=== PATIENT | female | born 1945 | race Caucasian/White ===

== ENCOUNTER 2017-11-02 11:01 | Emergency (ER) | payer MEDICARE, OTHER ==
[2017-11-02] MEDS ORDERED: RABIES IMMUNE GLOBULIN/PF 150 UNIT/ML, 10ML VIAL IM ONE (11:21)
[2017-11-02] MEDS ORDERED: RABIES VACCINE 2.5 IU VIAL IM ONE (11:21)
--- NOTE | 2017-11-02 11:31 | Emergency Department Record ---
History of Present Illness - General Chief Complaint: Animal Bite Stated Complaint: POSSIBLE BAT BITE Time Seen by Provider: 11/02/17 11:10 Source: Patient Mode of Arrival: Ambulatory Limitations: No limitations - History of Present Illness Initial Comments: The patient is here due to a possible bat exposure. She woke up last night with a bat near her head in her room. She also did find a PW to her abdomen that was fresh with blood on her night gown. Due to the possible exposure she is here for Rabies Prophylaxis. The patient believes her Td is UTD. Complaint: Animal bite Onset/Timin -: Hour(s) Location - General: Abdomen Animal: Bat Mechanism: Bite, Other - Related Data Home Medications Medication Instructions Recorded Confirmed Last Taken Aspirin [Aspir-Low] 81 mg PO DAILY 11/02/17 11/02/17 Unknown Calcium Carbonate [Calcium] 600 mg PO DAILY 11/02/17 11/02/17 Unknown Celecoxib [Celebrex] 200 mg PO BID 11/02/17 11/02/17 11/02/17 Cholecalciferol (Vitamin D3) 1,000 unit PO DAILY 11/02/17 11/02/17 Unknown [Vitamin D3] Hydrochlorothiazide [Hctz] 25 mg PO DAILY 11/02/17 11/02/17 11/02/17 Potassium Chloride 20 meq PO DAILY 11/02/17 11/02/17 11/02/17 Simvastatin [Zocor] 20 mg PO QHS 11/02/17 11/02/17 Unknown Telmisartan [Micardis] 80 mg PO DAILY 11/02/17 11/02/17 11/02/17 Allergies Allergy/AdvReac Type Severity Reaction Status Date / Time azithromycin [From Zithromax] Allergy HIVES Verified 11/02/17 11:11 meperidine HCl [From Demerol] AdvReac NAUSEA AND Verified 11/02/17 11:11 VOMITING morphine AdvReac NAUSEA AND Verified 11/02/17 11:11 VOMITING Travel Screening - Travel/Exposure Within Last 30 Days Have you traveled within the last 30 days?: No - Travel/Exposure Within Last Year Have you traveled outside the [place] in the last year?: No - Additonal Travel Details Have you been exposed to anyone with a communicable illness?: No - Travel Symptoms Symptom Screening: None Review of Systems Constitutional: Denies: Chills, Fever Past Medical History - SOCIAL HISTORY Smoking Status: Never smoker Alcohol Use: None Drug Use: None - RESPIRATORY Hx Respiratory Disorders: No - CARDIOVASCULAR Hx Cardio Disorders: Yes Hx Hypertension: Yes Comment:: high cholesterol - NEURO Hx Neuro Disorders: No - GI Hx GI Disorders: No - Hx Genitourinary Disorders: Yes Hx Bladder Problem: Yes (incont.) - ENDOCRINE Hx Endocrine Disorders: No - MUSCULOSKELETAL Hx Musculoskeletal Disorders: Yes Hx Arthritis: Yes Hx Fibromyalgia: Yes - PSYCH Hx Psych Problems: No - HEMATOLOGY/ONCOLOGY Hx Hematology/Oncology Disorders: No Family Medical History Any Significant Family History?: No Family Hx Comment (NOT TO BE USED IN PLACE OF ITEMS BELOW): strong family history of colon cancer, dad, grandma, aunt, and uncle Hx Anxiety: Brother/Sister Hx Cancer: Father, Brother/Sister, Grandparents *Cancer Comment: colon, ovarian Hx Dementia: Mother, Grandparents Hx Depression: Brother/Sister Hx Diabetes: Mother, Brother/Sister Hx Heart Disease: Father Hx HTN: Father, Mother, Brother/Sister Physical Exam - General General Appearance: Alert, Oriented x3, Cooperative, No acute distress - Head Head exam: Atraumatic, Normocephalic - Eye Eye exam: Normal appearance, PERRL - Neck Neck exam: Normal inspection, Full ROM. negative: Tenderness - Respiratory Respiratory exam: Normal lung sounds bilaterally. negative: Respiratory distress - Cardiovascular Cardiovascular Exam: Regular rate, Normal rhythm, Normal heart sounds - GI/Abdominal GI/Abdominal exam: Soft, Other (There is a very superficial < 1 cm wound to the R mid abdomen that is nontender and not bleeding.). negative: Tenderness Course Vital Signs 11/02/17 11:04 Temperature 98.1 F Pulse Rate 72 Respiratory 16 Rate Blood Pressure 137/79 Pulse Ox 96 - Reevaluation(s) Reevaluation #1: The patient is doing well after the multiple shots and is ready for home. She understands the need to return to the ER on day 3,7, and 14. 11/02/17 11:56 Disposition Disposition: Discharge Clinical Impression: Bat bite wound Disposition: Home, Self-Care Condition: (2) Stable Instructions: Animal Bite (ED) Additional Instructions: Please watch the area for infection and return to the ER in 3, 7 and 14 days from now for repeat vaccinations. Forms: Patient Portal Access Time of Disposition: 11:58 Quality - Quality Measures Quality Measures: N/A - Blood Pressure Screening View Details: Yes Does Patient Have Any of the Following: No Blood Pressure Classification: Pre-Hypertensive BP Reading Systolic Measurement: 121 Diastolic Measurement: 71 Screening for High Blood Pressure: < Pre-Hypertensive BP, F/U Documented > [ G8950] Pre-Hypertensive Follow-up Interventions: Referral to alternative/primary care provider.
== END 2017-11-02 12:30 | disposition home or self-care (01) ==
LOC: ER 11:01
DX: S30.871A Other superficial bite of abdominal wall, initial encounter (principal); W55.81XA Bitten by other mammals, initial encounter; Y92.003 Bedroom of unspecified non-institutional (private) residence as the place of occurrence of the external cause
CPT/HCPCS: 90375; 90675; 96372; 99283

== ENCOUNTER 2017-11-05 08:58 | Emergency (ER) | payer MEDICARE, OTHER ==
[2017-11-05] MEDS ORDERED: Diph,Pert(Acell),Tet Vac 0.5 ML SYR IM ONE (09:04)
[2017-11-05] MEDS ORDERED: RABIES VACCINE 2.5 IU VIAL IM ONE (09:04)
--- NOTE | 2017-11-05 09:09 | Emergency Department Record ---
History of Present Illness - General Chief Complaint: Wound, check Stated Complaint: RABIES VACCINE Time Seen by Provider: 11/05/17 09:04 Source: Patient Mode of arrival: Ambulatory Limitations: No limitations - History of Present Illness Initial Comments: The patient is here for her 2nd rabies vaccine due to a possible bat bite 3 days ago. She denies any problems. Complaint: Wound re-check Onset/Timin -: Days(s) Initial Visit For: Animal bite Returns Today for: Rabies shot, Wound recheck Symptoms Since Prior Visit: No new symptoms Associated Symptoms: None - Related Data Allergies Allergy/AdvReac Type Severity Reaction Status Date / Time azithromycin [From Zithromax] Allergy HIVES Verified 11/02/17 11:11 meperidine HCl [From Demerol] AdvReac NAUSEA AND Verified 11/02/17 11:11 VOMITING morphine AdvReac NAUSEA AND Verified 11/02/17 11:11 VOMITING Travel Screening - Travel/Exposure Within Last 30 Days Have you traveled within the last 30 days?: No - Travel/Exposure Within Last Year Have you traveled outside the [place] in the last year?: No - Additonal Travel Details Have you been exposed to anyone with a communicable illness?: No - Travel Symptoms Symptom Screening: None Review of Systems Constitutional: Denies: Chills, Fever Past Medical History - SOCIAL HISTORY Smoking Status: Never smoker Alcohol Use: None Drug Use: None - RESPIRATORY Hx Respiratory Disorders: No - CARDIOVASCULAR Hx Cardio Disorders: Yes Hx Hypertension: Yes Comment:: high cholesterol - NEURO Hx Neuro Disorders: No - GI Hx GI Disorders: No - Hx Genitourinary Disorders: Yes Hx Bladder Problem: Yes (incont.) - ENDOCRINE Hx Endocrine Disorders: No - MUSCULOSKELETAL Hx Musculoskeletal Disorders: Yes Hx Arthritis: Yes Hx Fibromyalgia: Yes - PSYCH Hx Psych Problems: No - HEMATOLOGY/ONCOLOGY Hx Hematology/Oncology Disorders: No Family Medical History Any Significant Family History?: No Family Hx Comment (NOT TO BE USED IN PLACE OF ITEMS BELOW): strong family history of colon cancer, dad, grandma, aunt, and uncle Hx Anxiety: Brother/Sister Hx Cancer: Father, Brother/Sister, Grandparents *Cancer Comment: colon, ovarian Hx Dementia: Mother, Grandparents Hx Depression: Brother/Sister Hx Diabetes: Mother, Brother/Sister Hx Heart Disease: Father Hx HTN: Father, Mother, Brother/Sister Physical Exam - General General Appearance: Alert, Cooperative, No acute distress - Head Head exam: Atraumatic, Normocephalic - Eye Eye exam: Normal appearance, PERRL - GI/Abdominal GI/Abdominal exam: negative: Tenderness (The previous possible bat bite site is mildly bruised from the IG but appears to be healing well.) - Extremities Extremities exam: Normal inspection, Full ROM, Normal capillary refill. negative: Tenderness Course Vital Signs 11/05/17 09:00 Temperature 97.8 F Pulse Rate 69 Respiratory 18 Rate Blood Pressure 146/82 Pulse Ox 98 - Reevaluation(s) Reevaluation #1: 11/05/17 09:07 The patient is to return to the ER on days 7 and 14 to complete her series. Disposition Disposition: Discharge Clinical Impression: Bat bite wound Disposition: Home, Self-Care Condition: (2) Stable Instructions: Rabies Vaccine (ED) Additional Instructions: Please watch for signs of infection and return on days 7 and 14 for further vaccines. Time of Disposition: 09:08 Quality - Quality Measures Quality Measures: N/A - Blood Pressure Screening View Details: Yes Does Patient Have Any of the Following: No Blood Pressure Classification: Pre-Hypertensive BP Reading Systolic Measurement: 146 Diastolic Measurement: 82 Screening for High Blood Pressure: < Pre-Hypertensive BP, F/U Documented > [ G8950] Pre-Hypertensive Follow-up Interventions: Referral to alternative/primary care provider.
== END 2017-11-05 09:31 | disposition home or self-care (01) ==
LOC: ER 08:58
DX: Z29.14 Encounter for prophylactic rabies immune globulin (principal); I10 Essential (primary) hypertension
CPT/HCPCS: 90675; 90715; 96372; 99282

== ENCOUNTER 2017-11-09 09:17 | Emergency (ER) | payer MEDICARE, OTHER ==
[2017-11-09] MEDS ORDERED: RABIES VACCINE 2.5 IU VIAL IM ONE (09:23)
--- NOTE | 2017-11-09 09:27 | Emergency Department Record ---
History of Present Illness - General Stated Complaint: RABIES SHOTS Time Seen by Provider: 11/09/17 09:23 Source: Patient, Old records reviewed Limitations: No limitations - History of Present Illness Initial Comments: 72 yo female returns for rabies vaccine #3 of 4. She had a bat exposure. No complaints after the previous vaccination shots. Complaint: Wound re-check, Other (Rabies vaccination) Initial Visit For: Animal bite (bat) Returns Today for: Other Symptoms Since Prior Visit: No new symptoms Associated Symptoms: None - Related Data Allergies Allergy/AdvReac Type Severity Reaction Status Date / Time azithromycin [From Zithromax] Allergy HIVES Verified 11/02/17 11:11 meperidine HCl [From Demerol] AdvReac NAUSEA AND Verified 11/02/17 11:11 VOMITING morphine AdvReac NAUSEA AND Verified 11/02/17 11:11 VOMITING Review of Systems Constitutional: Denies: Chills, Fever ENT: Denies: Congestion, Throat pain Respiratory: Denies: Cough Endocrine: Denies: Fatigue Gastrointestinal: Denies: Diarrhea, Nausea, Vomiting Genitourinary: Denies: Dysuria Musculoskeletal: Denies: Arthralgia, Myalgia Skin: Denies: Change in color Hematological/Lymphatic: Denies: Easy bleeding, Easy bruising Past Medical History - SOCIAL HISTORY Smoking Status: Never smoker Drug Use: None - RESPIRATORY Hx Respiratory Disorders: No - CARDIOVASCULAR Hx Cardio Disorders: Yes Hx Hypertension: Yes Comment:: high cholesterol - NEURO Hx Neuro Disorders: No - GI Hx GI Disorders: No - Hx Genitourinary Disorders: Yes Hx Bladder Problem: Yes (incont.) - ENDOCRINE Hx Endocrine Disorders: No - MUSCULOSKELETAL Hx Musculoskeletal Disorders: Yes Hx Arthritis: Yes Hx Fibromyalgia: Yes - PSYCH Hx Psych Problems: No - HEMATOLOGY/ONCOLOGY Hx Hematology/Oncology Disorders: No Family Medical History Family Hx Comment (NOT TO BE USED IN PLACE OF ITEMS BELOW): strong family history of colon cancer, dad, grandma, aunt, and uncle Hx Anxiety: Brother/Sister Hx Cancer: Father, Brother/Sister, Grandparents *Cancer Comment: colon, ovarian Hx Dementia: Mother, Grandparents Hx Depression: Brother/Sister Hx Diabetes: Mother, Brother/Sister Hx Heart Disease: Father Hx HTN: Father, Mother, Brother/Sister Physical Exam - General General Appearance: Alert, Oriented x3, Cooperative, No acute distress Limitations: No limitations - Head Head exam: Normal inspection - Eye Eye exam: Normal appearance - ENT ENT exam: Normal exam Ear exam: Normal external inspection Nasal Exam: Normal inspection - Neurological Neurological exam: Alert, Normal gait, Oriented X3 - Psychiatric Psychiatric exam: Normal affect, Normal mood - Skin Skin exam: Dry, Intact, Normal color, Warm Course - Reevaluation(s) Reevaluation #1: 11/09/17 09:26 Shot 3 of 4 to be administered today Return as scheduled Disposition Disposition: Discharge Clinical Impression: Need for post exposure prophylaxis for rabies Disposition: Home, Self-Care Condition: (1) Good Instructions: Rabies Vaccine (ED) Additional Instructions: Return as scheduled for your 4th and final rabies shot Forms: Patient Portal Access Time of Disposition: 09:27 Quality - Quality Measures Quality Measures: N/A - Blood Pressure Screening Does Patient Have Any of the Following: Active Dx of HTN Blood Pressure Classification: Hypertensive Reading Systolic Measurement: 141 Diastolic Measurement: 72 Screening for High Blood Pressure: Patient Exclusion, Hx of HTN [G9744]
== END 2017-11-09 09:45 | disposition home or self-care (01) ==
LOC: ER 09:17
DX: Z29.14 Encounter for prophylactic rabies immune globulin (principal); I10 Essential (primary) hypertension
CPT/HCPCS: 90675; 96372; 99282

== ENCOUNTER 2017-11-16 08:24 | Emergency (ER) | payer MEDICARE, OTHER ==
[2017-11-16] MEDS ORDERED: RABIES VACCINE 2.5 IU VIAL IM ONE (08:33)
--- NOTE | 2017-11-16 08:39 | Emergency Department Record ---
History of Present Illness - General Chief Complaint: General Stated Complaint: LAST RABIES VACCINE Time Seen by Provider: 11/16/17 08:27 Source: Patient Mode of arrival: Ambulatory Limitations: No limitations - History of Present Illness Initial Comments: pt is here for last of rabies series. she was possibly bitten by a bat Complaint: Other -: Awoke with symptoms Initial Visit For: Animal bite Returns Today for: Rabies shot Symptoms Since Prior Visit: No new symptoms - Related Data Allergies Allergy/AdvReac Type Severity Reaction Status Date / Time azithromycin [From Zithromax] Allergy HIVES Verified 11/02/17 11:11 meperidine HCl [From Demerol] AdvReac NAUSEA AND Verified 11/02/17 11:11 VOMITING morphine AdvReac NAUSEA AND Verified 11/02/17 11:11 VOMITING Travel Screening - Travel/Exposure Within Last 30 Days Have you traveled within the last 30 days?: No Review of Systems Reviewed: No additional complaints except as noted below Constitutional: Reports: As per HPI. Denies: Chills, Fever, Malaise, Night sweats, Weakness, Weight change Eyes: Reports: As per HPI. Denies: Eye discharge, Eye pain, Photophobia, Vision change ENT: Reports: As per HPI. Denies: Congestion, Dental pain, Ear pain, Epistaxis , Hearing loss, Throat pain Respiratory: Reports: As per HPI. Denies: Cough, Dyspnea, Hemoptysis, Stridor, Wheezes Cardiovascular: Reports: As per HPI. Denies: Arrhythmia, Chest pain, Dyspnea on exertion, Edema, Murmurs, Orthopnea, Palpitations, Paroxysmal nocturnal dyspnea, Rheumatic Fever, Syncope Endocrine: Reports: As per HPI. Denies: Fatigue, Heat or cold intolerance, Polydipsia, Polyuria Gastrointestinal: Reports: As per HPI. Denies: Abdominal pain, Constipation, Diarrhea, Hematemesis, Hematochezia, Melena, Nausea, Vomiting Genitourinary: Reports: As per HPI. Denies: Abnormal menses, Discharge, Dyspareunia, Dysuria, Frequency, Hematuria, Incontinence, Retention, Urgency Musculoskeletal: Reports: As per HPI. Denies: Arthralgia, Back pain, Gout, Joint swelling, Myalgia, Neck pain Skin: Reports: As per HPI. Denies: Bruising, Change in color, Change in hair/ nails, Lesions, Pruritus, Rash Neurological: Reports: As per HPI. Denies: Abnormal gait, Confusion, Headache, Numbness, Paresthesias, Seizure, Tingling, Tremors, Vertigo, Weakness Psychiatric: Reports: As per HPI. Denies: Anxiety, Auditory hallucinations, Depression, Homicidal thoughts, Suicidal thoughts, Visual hallucinations Hematological/Lymphatic: Reports: As per HPI. Denies: Anemia, Blood Clots, Easy bleeding, Easy bruising, Swollen glands Past Medical History - SOCIAL HISTORY Smoking Status: Never smoker - RESPIRATORY Hx Respiratory Disorders: No - CARDIOVASCULAR Hx Cardio Disorders: Yes Hx Hypertension: Yes Comment:: high cholesterol - NEURO Hx Neuro Disorders: No - GI Hx GI Disorders: No - Hx Genitourinary Disorders: Yes Hx Bladder Problem: Yes (incont.) - ENDOCRINE Hx Endocrine Disorders: No - MUSCULOSKELETAL Hx Musculoskeletal Disorders: Yes Hx Arthritis: Yes Hx Fibromyalgia: Yes - PSYCH Hx Psych Problems: No - HEMATOLOGY/ONCOLOGY Hx Hematology/Oncology Disorders: No Family Medical History Any Significant Family History?: Yes Family Hx Comment (NOT TO BE USED IN PLACE OF ITEMS BELOW): strong family history of colon cancer, dad, grandma, aunt, and uncle Hx Anxiety: Brother/Sister Hx Cancer: Father, Brother/Sister, Grandparents *Cancer Comment: colon, ovarian Hx Dementia: Mother, Grandparents Hx Depression: Brother/Sister Hx Diabetes: Mother, Brother/Sister Hx Heart Disease: Father Hx HTN: Father, Mother, Brother/Sister Physical Exam - General General Appearance: Alert, Oriented x3, Cooperative, No acute distress - Head Head exam: Normal inspection - Eye Eye exam: Normal appearance, PERRL Pupils: Normal accommodation - ENT ENT exam: Normal exam, Mucous membranes moist, Normal external ear exam, Normal orophraynx Ear exam: Normal external inspection. negative: External canal tenderness Nasal Exam: Normal inspection. negative: Discharge, Sinus tenderness Mouth exam: Normal external inspection, Tongue normal Teeth exam: Normal inspection. negative: Dental caries Throat exam: Normal inspection. negative: Tonsillar erythema, Tonsillar exudate - Neck Neck exam: Normal inspection, Full ROM. negative: Tenderness - Respiratory Respiratory exam: negative: Respiratory distress - Cardiovascular Cardiovascular Exam: Regular rate, Normal rhythm - GI/Abdominal GI/Abdominal exam: Soft, Normal bowel sounds. negative: Tenderness - Rectal Rectal exam: Deferred - exam: Deferred - Extremities Extremities exam: Normal inspection, Full ROM, Normal capillary refill. negative: Tenderness - Back Back exam: Reports: Normal inspection, Full ROM. Denies: Muscle spasm, Rash noted, Tenderness - Neurological Neurological exam: Alert, CN II-XII intact, Normal gait, Oriented X3 - Psychiatric Psychiatric exam: Normal affect, Normal mood - Skin Skin exam: Dry, Intact, Normal color, Warm Course Vital Signs 11/16/17 08:29 Temperature 98.3 F Pulse Rate 67 Respiratory 20 Rate Blood Pressure 152/90 Pulse Ox 98 Disposition Disposition: Discharge Clinical Impression: Rabies, need for prophylactic vaccination against Disposition: Home, Self-Care Condition: (1) Good Instructions: Rabies Vaccine (ED) Additional Instructions: follow up with family doctor. return sooner if worse Quality - Quality Measures Quality Measures: N/A - Blood Pressure Screening Does Patient Have Any of the Following: Active Dx of HTN Blood Pressure Classification: Hypertensive Reading Systolic Measurement: 152 Diastolic Measurement: 90 Screening for High Blood Pressure: Patient Exclusion, Hx of HTN [G9744]
== END 2017-11-16 09:06 | disposition home or self-care (01) ==
LOC: ER 08:24
DX: Z29.14 Encounter for prophylactic rabies immune globulin (principal); I10 Essential (primary) hypertension
CPT/HCPCS: 90675; 96372; 99282

== ENCOUNTER 2018-05-10 13:34 | Inpatient (IN) | payer MEDICARE, OTHER ==
[2018-05-10] MEDS ORDERED: BISACODYL 5 MG TABLET PO PRN (14:27)
[2018-05-10] MEDS ORDERED: MAGNESIUM HYDROXIDE 30 ML UDC PO PRN (14:27)
[2018-05-10 15:16] LABS: BLOOD UREA NITROGEN 13 mg/dL (8-23); CREATININE 0.5 mg/dL (0.5-0.9); EST GLOMERULAR FILTRATION RATE > 60 mL/min; GLUCOSE,RANDOM 135 mg/dL (74-109)
--- NOTE | 2018-05-10 15:30 | Rehab Evaluation ---
Patient Information - Patient Information Diagnosis: deconditioning related to right hip fracture Ordered Treatment: OT Evaluate and Treat Status: Initial Evaluation Surgery: Yes (ORIF right hip) Date of Surgery: 05/08/18 History: Detail (Pt fell on 05/06/18 sustaining a right intertrochanteric fracture. She underwent an ORIF on 05/08/18.) Past Medical/Surgical Hx: PAST MEDICAL/SURGICAL HISTORY Past Surgical History appendectomy, hysterectomy, bone spur left heel 2010 & 2011, tubal, D&C, cholescystectomy, bladder suspension, bilateral total knee, PMH - Respiratory Hx Respiratory Disorders No PMH - Cardiovascular Hx Cardiovascular Disorders Yes Hx Hypertension Yes Comment: high cholesterol PMH - Neuro Hx Neurological Disorders No PMH - GI Hx Gastrointestinal Disorders No PMH - Hx Genitourinary Disorders Yes Hx Age of Menopause 44 Hx Bladder Problem Yes: incont. PMH - Endocrine Hx Endocrine Disorders No PMH - Musculoskeletal Hx Musculoskeletal Disorders Yes Hx Arthritis Yes Hx Fibromyalgia Yes PMH - Psych Hx Psychiatric Problems No PMH - Hematology/Oncology Hx Hematology/Oncology No Disorders Premorbid Status: Detail (Pt lives alone in a 2 story house with basement, she generally stays on the main level although she has a freezer in the basement. She has 1 step, no railing at the entrance. She has a tub/shower combination and typically stands to shower. She has an elevated toilet with a grab bar which is also within reach of the tub. She is Ind with all ADLs/IADLs and driving. She has a 2 wheeled walker, crutches and access to a wheelchair.) Social History: Detail (Pt has supportive family members who were present for evaluation.) Precautions: [place], Fall, Other (TTWB right LE) - Time With Patient Total Time Spent With Patient (Min): 30 Treatment Procedures: Detail (OT eval low complexity) Subjective Information - Subjective Information Per Patient Objective Data - Pain Pain Present: Yes (Pt reports 0/10 pain at rest and 7/10 pain with mobility.) - Mental Status Patient Orientation: Oriented x3 - Visual Perception Appears within normal limits for therapeutic activities (Pt wears glasses.) - ROM Within normal limits (Ant UE AROM WNL.) - Strength/Tone Within normal limits (Ant UE strength 5/5 throughout.) - Coordination Appears within normal limits for therapeutic activities - Bed Mobility Needs Assist (Pt was Ind with supine to sit although she required HOB raised and use of bed rail as well as extra time due to weakness of right LE and pain. Pt required max assist to lift right LE into bed for sit to supine, she was Ind with scooting up in bed with use of bed rails.) - Transfers Independent (Min assist with sit to stand from EOB with bed raised, Ind with sit to stand from commode with use of grab bar. Pt had moderate difficulty with sit to stand due to increased pain.) - Balance Balance Sitting: Good Balance Standing: Fair - Sensation Intact - Gait Detail (Pt ambulated several feet into bathroom with 2 wheeled walker and CG assist. Pt fatigued very easily.) - ADL's/IADL's Detail (Pt able to complete toileting with modifications, she was able to stand at sink and wash face and complete oral hygiene. Other self cares completed with assist from nursing.) Therapy Assessment - Therapy Assessment Detail (Pt presents with impaired mobility, right LE pain and decreased Ind with self cares and IADLs due to mobility and pain limitations.) Problem List - Problem List Occupational Therapy Problem List: Detail (1. Decreased Ind with functional mobility needed for safe and Ind ADLs/IADLs. 2. Decreased Ind with self care tasks. 3. Decreased endurance due to pain and mobility limitations.) Goals - Goals Occupational Therapy Goals: 1. Pt will be Ind with bed mobility and sit to stand transfers to allow Ind with self care activities. 2. Pt will be Ind with total body dressing. 3. Pt will be safe and Ind with showering in sitting or standing. 4. Pt will demonstrate improved endurance to allow Ind with ADLs/IADLs. Prognosis - Prognosis Good Plan - Plan Occupational Therapy Plan: OT 2-4 times weekly to address goals and problem list above.
--- NOTE | 2018-05-10 15:49 | Rehab Evaluation ---
Patient Information - Patient Information Diagnosis: deconditioning related to right hip fracture Ordered Treatment: PT Evaluate and Treat Status: Initial Evaluation Surgery: Yes (ORIF right hip) Date of Surgery: 05/08/18 History: Detail (Pt fell on 05/06/18 sustaining a right intertrochanteric fracture. She underwent an ORIF on 05/08/18.) Past Medical/Surgical Hx: PAST MEDICAL/SURGICAL HISTORY Past Surgical History appendectomy, hysterectomy, bone spur left heel 2010 & 2011, tubal, D&C, cholescystectomy, bladder suspension, bilateral total knee, PMH - Respiratory Hx Respiratory Disorders No PMH - Cardiovascular Hx Cardiovascular Disorders Yes Hx Hypertension Yes Comment: high cholesterol PMH - Neuro Hx Neurological Disorders No PMH - GI Hx Gastrointestinal Disorders No PMH - Hx Genitourinary Disorders Yes Hx Age of Menopause 44 Hx Bladder Problem Yes: incont. PMH - Endocrine Hx Endocrine Disorders No PMH - Musculoskeletal Hx Musculoskeletal Disorders Yes Hx Arthritis Yes Hx Fibromyalgia Yes PMH - Psych Hx Psychiatric Problems No PMH - Hematology/Oncology Hx Hematology/Oncology No Disorders Premorbid Status: Detail (Pt lives alone in a 2 story house with basement, she generally stays on the main level although she has a freezer in the basement. She has 1 step, no railing at the entrance. She has a tub/shower combination and typically stands to shower. She has an elevated toilet with a grab bar which is also within reach of the tub. She was Ind with all ADLs/IADLs and driving. She has a 2 wheeled walker, crutches and access to a wheelchair.) Social History: Detail (Pt has supportive family members who were present for evaluation.) Precautions: [place], Fall, Other (TTWB right LE) - Time With Patient Total Time Spent With Patient (Min): 30 Treatment Procedures: Detail (Initial Evaluation, instruction in LE isometric exercises.) Subjective Information - Subjective Information Per Patient (The patient had no complaints of pain at rest. The patient complained of R Hip pain level 7 after ambulating.) Objective Data - Mental Status Patient Orientation: Oriented x3 - Visual Perception Appears within normal limits for therapeutic activities - ROM Not within normal limits (The patient's L LE AROM was WNL, R knee and ankle AROM was WNL, hip was not test secondary to pain with movement.) - Strength/Tone Not within normal limits (The patient's L LE strength was 5/5. R LE was not tested due to pain and s/p surgery, however, not functional due to patient was unable to lift R LE in and out of bed. Patient also had difficulty isolating quadriceps.) - Bed Mobility Needs Assist (The patient was able to acheive supine to sit with HOB raised and use of railing and increased time ie: slowly edging R LE off bed. The patient required maximal PA of 1 to lift R LE into bed with sit to supine and was independent with upper body. The patient was independent with scooting up in bed with use of railings.) - Transfers Needs Assist (The patient required minimal PA of 1 with sit to stand and verbal cues to maintaing TTWB. The patient was able to acheive sit to stand to toilet with use of grab bar and one hand on walker. The patient was independent with stand to sit with complaints of increased R hip pain.) - Balance Balance Sitting: Good Balance Standing: Fair (The patient requires use of walker due to TTWB status.) - Gait Detail (The patient ambulated with front wheeled walker a distance of 7 feet x 2 with CG/supervision for safety, TTWB R LE with verbal cues to maintain TTWB( at times patient appeared to be putting more weight on R LE ie: PWB instead of TTWB). The patient was fatigued after ambulating to the bathroom.) - Special Tests Yes (Inspection: increased edema R LE.) Therapy Assessment - Therapy Assessment Detail (The patient has decreased R LE strength, requires assistance with bed mobility, transfers and ambulated limited distances. Feel the patient is a good rehab candidate to improve functional status.) Patient Education - Patient Education Teaching Topic: Exercise/Activity (The patient was instructed in a HEP to complete over the weekend including gluteal sets, quad sets and ankle pumps.), Precautions (TTWB, patient needs verbal cues to maintain status.) Response: Return Demonstration, Reinforcement Needed Teaching Method: Demonstration Teaching Recipient: Patient Barriers To Learning: Age Related Problem List - Problem List Physical Therapy Problem List: Detail (1) Decreased R LE strength 2) Assistance with bed mobility 3) Assistance with transfers 4) Limited ambulation distance 5 ) R hip pain) Occupational Therapy Problem List: Detail (1. Decreased Ind with functional mobility needed for safe and Ind ADLs/IADLs. 2. Decreased Ind with self care tasks. 3. Decreased endurance due to pain and mobility limitations.) Goals - Goals Physical Therapy Goals: 1) The patient will be independent with bed mobility. 2 ) The patient will be independent with all transfers including car transfers. 3 ) Increase LE strength 1/3 muscle grade to improve functional mobility. 4) The patient will be independent with ambulation with appropriate assistive device household distances as required in home, with TTWB. 5) The patient will ambulate on steps with supervision for safety. 6) The patient will be independent with LE strengthening HEP. Occupational Therapy Goals: 1. Pt will be Ind with bed mobility and sit to stand transfers to allow Ind with self care activities. 2. Pt will be Ind with total body dressing. 3. Pt will be safe and Ind with showering in sitting or standing. 4. Pt will demonstrate improved endurance to allow Ind with ADLs/IADLs. Prognosis - Prognosis Good (For return to home environment) Plan - Plan Physical Therapy Plan: PT 1-2 times a day M-F for gait training on levels and stairs, education of TTWB status throughout all weight bearing activities, LE strengthening exercises, transfer training, bed mobility. Occupational Therapy Plan: OT 2-4 times weekly to address goals and problem list above.
[2018-05-10] MEDS: HYDROCODONE/APAP 5/325MG TABLET PO PRN (17:34)
--- NOTE | 2018-05-10 18:05 | History & Physical ---
History of Present Illness - Date of Service Date of Service for History & Physical: 05/12/18 - History of Present Illness Admitting Diagnosis: deconditioning related to right hip fracture. History of Present Illness: 73 yo female presents for rehab/swing bed admission r/t right total hip replacement s/p fall from a bar stool. Pt had total replacement at [facility]. PMH HTN, hyperlipidemia, arthritis, and urinary incontinence. 05/06/18 Pt was at a bar in [place], foot was caught on her purse strap, fell off the stool and broke right hip. XR reports reveals 13mm displacement, pt completed R ORIF and was tranfered to [facility] 2 days s/p surgery for rehab. Pt lives in [facility] and wanted rehab close to home. Pt was instructed to follow up with [facility] ortho thierry 10-14 days but the travel is too burdensome for pt (per pt) and requests to have local follow up was made. Original ortho and Dr Davis have agreed to local follow up. Dr Davis will see pt for follow up. PT and OT have evaluated pt and will begin to work with her on basic ADLs and progress once Dr Davis gives post op release, at this time pt is restricted to toe touch wgt bearing right leg. Incision covered with sterile gauze and transparent tegaderm. Incision and probable drain site noted. No active bleeding, no surrounding redness noted. Distal bruising to post hip/leg but soft. DP/PT pulses +3, remaining skin pwd. please see swing bed h&p Review of Systems Constitutional: Reports: As per HPI. Denies: Chills, Fever, Malaise, Night sweats, Weakness, Weight change Eyes: Reports: As per HPI. Denies: Eye discharge, Eye pain, Photophobia, Vision change ENT: Reports: As per HPI. Denies: Congestion, Dental pain, Ear pain, Epistaxis , Hearing loss, Throat pain Respiratory: Reports: As per HPI. Denies: Cough, Dyspnea, Hemoptysis, Stridor, Wheezes Cardiovascular: Reports: As per HPI. Denies: Arrhythmia, Chest pain, Dyspnea on exertion, Edema, Murmurs, Orthopnea, Palpitations, Paroxysmal nocturnal dyspnea, Rheumatic Fever, Syncope Endocrine: Reports: As per HPI. Denies: Fatigue, Heat or cold intolerance, Polydipsia, Polyuria Gastrointestinal: Reports: As per HPI. Denies: Abdominal pain, Constipation, Diarrhea, Hematemesis, Hematochezia, Melena, Nausea, Vomiting Genitourinary: Reports: As per HPI. Denies: Abnormal menses, Discharge, Dyspareunia, Dysuria, Frequency, Hematuria, Incontinence, Retention, Urgency Musculoskeletal: Reports: As per HPI. Denies: Arthralgia, Back pain, Gout, Joint swelling, Myalgia, Neck pain Skin: Reports: Bruising Neurological: Reports: As per HPI. Denies: Abnormal gait, Confusion, Headache, Numbness, Paresthesias, Seizure, Tingling, Tremors, Vertigo, Weakness Psychiatric: Reports: As per HPI. Denies: Anxiety, Auditory hallucinations, Depression, Homicidal thoughts, Suicidal thoughts, Visual hallucinations Past Medical History - SOCIAL HISTORY Smoking Status: Never smoker Alcohol Use: None - RESPIRATORY Hx Respiratory Disorders: No - CARDIOVASCULAR Hx Cardio Disorders: Yes Hx Hypertension: Yes Comment:: high cholesterol - NEURO Hx Neuro Disorders: No - GI Hx GI Disorders: No - Hx Genitourinary Disorders: Yes Hx Bladder Problem: Yes (incont.) - ENDOCRINE Hx Endocrine Disorders: No - MUSCULOSKELETAL Hx Musculoskeletal Disorders: Yes Hx Arthritis: Yes Hx Fibromyalgia: Yes - PSYCH Hx Psych Problems: No - HEMATOLOGY/ONCOLOGY Hx Hematology/Oncology Disorders: No Family Medical History Any Significant Family History?: Yes Family Hx Comment (NOT TO BE USED IN PLACE OF ITEMS BELOW): strong family history of colon cancer, dad, grandma, aunt, and uncle Hx Anxiety: Brother/Sister Hx Cancer: Father, Brother/Sister, Grandparents *Cancer Comment: colon, ovarian Hx Dementia: Mother, Grandparents Hx Depression: Brother/Sister Hx Diabetes: Mother, Brother/Sister Hx Heart Disease: Father Hx HTN: Father, Mother, Brother/Sister H&P Meds/Allergies - Allergies Allergies: Allergies Allergy/AdvReac Type Severity Reaction Status Date / Time azithromycin [From Zithromax] Allergy HIVES Verified 11/02/17 11:11 meperidine HCl [From Demerol] AdvReac NAUSEA AND Verified 11/02/17 11:11 VOMITING morphine AdvReac NAUSEA AND Verified 11/02/17 11:11 VOMITING - Active Medications Active Medications: Current Medications Hydrocodone Bitart/Acetaminophen ([place] 5mg/325mg) 1 each PO Q6H PRN PRN Reason: PAIN - MOD TO SEVERE (5-10) Last Admin: 05/10/18 17:34 Dose: 1 each Aspirin (Ecotrin (Ec)) 81 mg PO DAILY [facility] Bisacodyl (Dulcolax) 10 mg PO DAILY PRN PRN Reason: CONSTIPATION Calcium Carbonate/Glycine (Tums) 500 mg PO DAILY [facility] Docusate Sodium (Colace) 100 mg PO BID [facility] Enoxaparin Sodium (Lovenox) 40 mg SQ DAILY [facility] Stop: 05/27/18 10:01 Hydrochlorothiazide (Hctz 25mg) 25 mg PO DAILY [facility] Losartan Potassium (Losartan Potassium) 100 mg PO DAILY [facility] Magnesium Hydroxide (Milk Of Magnesium) 30 ml PO Q6H PRN PRN Reason: CONSTIPATION Magnesium Oxide (Mag Ox) 400 mg PO DAILY [facility] Ondansetron HCl (Zofran Odt) 4 mg SL BID PRN PRN Reason: NAUSEA Potassium Chloride (Klor-Con) 20 meq PO DAILY [facility] Simvastatin (Zocor) 20 mg PO QHS [facility] Vitamin D (Vitamin D3) 1,000 unit PO DAILY [facility] Physical Exam - Vital Signs Vital Signs: Vital Signs - Last 24 Hrs Temp Pulse Resp BP Pulse Ox 05/10/18 14:47 98.1 F 72 16 105/59 93 L - General General Appearance: Alert, Oriented x3, Cooperative, No acute distress Limitations: No limitations - Head Head exam: Atraumatic, Normocephalic Head exam detail: negative: Abrasion, Contusion - Eye Eye exam: Normal appearance - ENT ENT exam: Normal exam Ear exam: Normal external inspection Nasal Exam: Normal inspection Mouth exam: Normal external inspection Throat exam: Normal inspection - Neck Neck exam: Normal inspection - Respiratory Respiratory exam: Normal lung sounds bilaterally. negative: Accessory muscle use - Cardiovascular Cardiovascular Exam: Regular rate, Normal rhythm, Normal heart sounds Peripheral Pulses: 3+: Radial (R), Radial (L), Dorsalis Pedis (R), Dorsalis Pedis (L) - GI/Abdominal GI/Abdominal exam: Soft, Normal bowel sounds - Rectal Rectal exam: Deferred - exam: Deferred - Extremities Extremities exam: Joint swelling (right hip), Normal capillary refill, Tenderness (right hip). negative: Calf tenderness - Back Back exam: Reports: Normal inspection - Neurological Neurological exam: Abnormal gait (right leg toe touch), Alert, Oriented X3 - Psychiatric Psychiatric exam: Normal affect, Normal mood - Skin Skin exam: Dry, Normal color Results - Labs Result Diagrams: 05/12/18 14:07 Labs Last 24 Hours: Laboratory Results - last 24 hr 05/10/18 14:52 Sodium 140 Potassium 3.2 L Chloride 100 Carbon Dioxide 29.0 Anion Gap 11.0 BUN 13 Creatinine 0.5 Estimated GFR > 60 Random Glucose 135 H Calcium 8.9 VTE H&P Assessment - Risk for VTE Risk for VTE: Yes Risk Level: High Risk Assessment Date: 05/10/18 Risk Assessment Time: 13:00 VTE Orders Placed or Will Be Placed: Yes
[2018-05-10] MEDS: DOCUSATE SODIUM 100 MG CAPSULE PO SCH (21:25)
[2018-05-10] MEDS: SIMVASTATIN 20 MG TABLET PO SCH (21:25)
[2018-05-11] MEDS: HYDROCODONE/APAP 5/325MG TABLET PO PRN ×3 (01:16→20:21)
[2018-05-11] MEDS: ONDANSETRON 4 MG ODT TABLET SL PRN (01:17)
[2018-05-11] MEDS: POTASSIUM CHLORIDE 20 MEQ TABLET PO SCH (09:25)
[2018-05-11] MEDS: ASPIRIN 81 MG TABEC PO SCH (09:25)
[2018-05-11] MEDS: HYDROCHLOROTHIAZIDE 25 MG TABLET PO SCH (09:25)
[2018-05-11] MEDS: DOCUSATE SODIUM 100 MG CAPSULE PO SCH ×2 (09:25→21:15)
[2018-05-11] MEDS: LOSARTAN POTASSIUM 100 MG TABLET PO SCH (09:25)
[2018-05-11] MEDS: ENOXAPARIN 40 MG/0.4 ML SYR SQ SCH (09:26)
[2018-05-11] MEDS: MAGNESIUM OXIDE 400 MG TABLET PO SCH (09:26)
[2018-05-11] MEDS: CALCIUM CARBONATE 500 MG TAB.CHEW PO SCH (09:26)
[2018-05-11] MEDS: CHOLECALCIFEROL 1,000 UNIT TABLET PO SCH (09:27)
[2018-05-11] MEDS: SIMVASTATIN 20 MG TABLET PO SCH (21:15)
[2018-05-12] MEDS: POTASSIUM CHLORIDE 20 MEQ TABLET PO SCH (09:26)
[2018-05-12] MEDS: CHOLECALCIFEROL 1,000 UNIT TABLET PO SCH (09:26)
[2018-05-12] MEDS: ASPIRIN 81 MG TABEC PO SCH (09:26)
[2018-05-12] MEDS: HYDROCHLOROTHIAZIDE 25 MG TABLET PO SCH (09:26)
[2018-05-12] MEDS: CALCIUM CARBONATE 500 MG TAB.CHEW PO SCH (09:27)
[2018-05-12] MEDS: HYDROCODONE/APAP 5/325MG TABLET PO PRN (09:27)
[2018-05-12] MEDS: LOSARTAN POTASSIUM 100 MG TABLET PO SCH (09:28)
[2018-05-12] MEDS: MAGNESIUM OXIDE 400 MG TABLET PO SCH (09:28)
[2018-05-12] MEDS: ENOXAPARIN 40 MG/0.4 ML SYR SQ SCH (09:29)
[2018-05-12] MEDS: DOCUSATE SODIUM 100 MG CAPSULE PO SCH ×2 (09:29→21:26)
--- NOTE | 2018-05-12 14:39 | History & Physical ---
History of Present Illness - Date Date of Service for History & Physical: 05/12/18 - History of Present Illness Admitting Diagnosis: deconditioning related to right hip fracture. History of Present Illness: 73 yo female presents for rehab/swing bed admission r/t right total hip replacement s/p fall from a bar stool. Pt had total replacement at [facility]. PMH HTN, hyperlipidemia, arthritis, and urinary incontinence. 05/06/18 Pt was at a bar in [place], foot was caught on her purse strap, fell off the stool and broke right hip. XR reports reveals 13mm displacement, pt completed R ORIF and was tranfered to [facility] 2 days s/p surgery for rehab. Pt lives in [place] and wanted rehab close to home. Pt was instructed to follow up with [facility] ortho thierry 10-14 days but the travel is too burdensome for pt (per pt) and requests to have local follow up was made. Original ortho and Dr Davis have agreed to local follow up. Dr Davis will see pt for follow up. PT and OT have evaluated pt and will begin to work with her on basic ADLs and progress once Dr Davis gives post op release, at this time pt is restricted to toe touch wgt bearing right leg. Incision covered with sterile gauze and transparent tegaderm. Incision and probable drain site noted. No active bleeding, no surrounding redness noted. Distal bruising to post hip/leg but soft. DP/PT pulses +3, remaining skin pwd. General - Cognitive Patterns Speech: Normal Thought Process: Intact Thought Content: Normal Orientation: Oriented x3, Person, Place, Time, Responds to Name, Recognizes Familiar Faces or Places, Knows Own Daily Schedule - Communication Preferred Language?: Faroese Dental Office Assistant Required: No Level of Education: High School Comprehension Ability: No Impairment Able to Read: Yes Able to Write: Yes Select best description of speech pattern: Clear Speech Ability to express ideas and wants: Understood Understanding verbal content: Understands - Mood and Behavior Patterns Appearance: Well Groomed Mood: Normal Attitude: Cooperative Motor Activity: Calm Affect: Appropriate Hallucinations: Denies - Psychosocial Well-Being Usual Living Arrangement: Alone - Physical Functioning Activity Level: Up with assist x1 Turning: Self ad judy ROM Ability: Moves all extremities Assistive Devices: 2 Wheel Walker Ambulation Ability: Needs Assist Bed Mobility: Independent Transfer Ability: Needs Assist Bathing Ability: Needs Assist Personal Hygiene: Needs Assist Dressing Ability: Needs Assist Eating (Feeding) Ability: Independent Toileting Ability: Needs Assist Administer Own Medication: Needs Assist - Continence Bowel Pattern: Normal for Patient Bladder Pattern: Incontinent Urinary Incontinence: Urge - Dental Status Unable to examine: No Broken or loosely fitting full or partial dentures: No No natural teeth or tooth fragment(s) (edentulous): No Abnormal mouth tissue (ulcers, masses, oral lesions, etc.): No Obvious or likely cavity or broken natural teeth: No Inflamed or bleeding gums or loose natural teeth: No Mouth/facial pain, discomfort or difficulty chewing: No - Nutrition Screening Poor oral intake > 1 week: No Unplanned weight loss in specified time frame: No Nutrition Support via tube feedings or parenteral nutrition: No Pressure Ulcer: No Significantly underweight define as BMI <18.5 kg/m2: No Albumin <2.5mg/dL: No Persistent nausea/vomiting/diarrhea >3 days: No Difficulty chewing/swallowing/mouth sores: No Admitting Diagnosis: No Nutrition Risk Score: Low Risk Review of Systems Constitutional: Reports: As per HPI. Denies: Chills, Fever, Malaise, Night sweats, Weakness, Weight change Eyes: Reports: As per HPI. Denies: Eye discharge, Eye pain, Photophobia, Vision change ENT: Reports: As per HPI. Denies: Congestion, Dental pain, Ear pain, Epistaxis , Hearing loss, Throat pain Respiratory: Reports: As per HPI. Denies: Cough, Dyspnea, Hemoptysis, Stridor, Wheezes Cardiovascular: Reports: As per HPI. Denies: Arrhythmia, Chest pain, Dyspnea on exertion, Edema, Murmurs, Orthopnea, Palpitations, Paroxysmal nocturnal dyspnea, Rheumatic Fever, Syncope Endocrine: Reports: As per HPI. Denies: Fatigue, Heat or cold intolerance, Polydipsia, Polyuria Gastrointestinal: Reports: As per HPI. Denies: Abdominal pain, Constipation, Diarrhea, Hematemesis, Hematochezia, Melena, Nausea, Vomiting Genitourinary: Reports: As per HPI. Denies: Abnormal menses, Discharge, Dyspareunia, Dysuria, Frequency, Hematuria, Incontinence, Retention, Urgency Musculoskeletal: Reports: As per HPI. Denies: Arthralgia, Back pain, Gout, Joint swelling, Myalgia, Neck pain Skin: Reports: Bruising Neurological: Reports: As per HPI. Denies: Abnormal gait, Confusion, Headache, Numbness, Paresthesias, Seizure, Tingling, Tremors, Vertigo, Weakness Psychiatric: Reports: As per HPI. Denies: Anxiety, Auditory hallucinations, Depression, Homicidal thoughts, Suicidal thoughts, Visual hallucinations Past Medical History - SOCIAL HISTORY Smoking Status: Never smoker Alcohol Use: None - SURGICAL HISTORY Past Surgical History: appendectomy, hysterectomy, bone spur left heel 2010 & 2011, tubal, D&C, cholescystectomy, bladder suspension, bilateral total knee, - RESPIRATORY Hx Respiratory Disorders: No - CARDIOVASCULAR Hx Cardio Disorders: Yes Hx Hypertension: Yes Comment:: high cholesterol - NEURO Hx Neuro Disorders: No - GI Hx GI Disorders: No - Hx Genitourinary Disorders: Yes Hx Bladder Problem: Yes (incont.) - ENDOCRINE Hx Endocrine Disorders: No - MUSCULOSKELETAL Hx Musculoskeletal Disorders: Yes Hx Arthritis: Yes Hx Fibromyalgia: Yes - PSYCH Hx Psych Problems: No - HEMATOLOGY/ONCOLOGY Hx Hematology/Oncology Disorders: No Family Medical History Any Significant Family History?: Yes Family Hx Comment (NOT TO BE USED IN PLACE OF ITEMS BELOW): strong family history of colon cancer, dad, grandma, aunt, and uncle Hx Anxiety: Brother/Sister Hx Cancer: Father, Brother/Sister, Grandparents *Cancer Comment: colon, ovarian Hx Dementia: Mother, Grandparents Hx Depression: Brother/Sister Hx Diabetes: Mother, Brother/Sister Hx Heart Disease: Father Hx HTN: Father, Mother, Brother/Sister H&P Meds/Allergies - Allergies Allergies: Allergies Allergy/AdvReac Type Severity Reaction Status Date / Time azithromycin [From Zithromax] Allergy HIVES Verified 11/02/17 11:11 meperidine HCl [From Demerol] AdvReac NAUSEA AND Verified 11/02/17 11:11 VOMITING morphine AdvReac NAUSEA AND Verified 11/02/17 11:11 VOMITING - Active Medications Active Medications: Current Medications Hydrocodone Bitart/Acetaminophen ([place] 5mg/325mg) 1 each PO Q6H PRN PRN Reason: PAIN - MOD TO SEVERE (5-10) Last Admin: 05/12/18 09:27 Dose: 1 each Aspirin (Ecotrin (Ec)) 81 mg PO DAILY [facility] Last Admin: 05/12/18 09:26 Dose: 81 mg Bisacodyl (Dulcolax) 10 mg PO DAILY PRN PRN Reason: CONSTIPATION Calcium Carbonate/Glycine (Tums) 500 mg PO DAILY [facility] Last Admin: 05/12/18 09:27 Dose: 500 mg Docusate Sodium (Colace) 100 mg PO BID [facility] Last Admin: 05/12/18 09:29 Dose: 100 mg Enoxaparin Sodium (Lovenox) 40 mg SQ DAILY [facility] Stop: 05/27/18 10:01 Last Admin: 05/12/18 09:29 Dose: 40 mg Hydrochlorothiazide (Hctz 25mg) 25 mg PO DAILY [facility] Last Admin: 05/12/18 09:26 Dose: 25 mg Losartan Potassium (Losartan Potassium) 100 mg PO DAILY [facility] Last Admin: 05/12/18 09:28 Dose: 100 mg Magnesium Hydroxide (Milk Of Magnesium) 30 ml PO Q6H PRN PRN Reason: CONSTIPATION Magnesium Oxide (Mag Ox) 400 mg PO DAILY [facility] Last Admin: 05/12/18 09:28 Dose: 400 mg Ondansetron HCl (Zofran Odt) 4 mg SL BID PRN PRN Reason: NAUSEA Last Admin: 05/11/18 01:17 Dose: 4 mg Potassium Chloride (Klor-Con) 20 meq PO DAILY [facility] Last Admin: 05/12/18 09:26 Dose: 20 meq Simvastatin (Zocor) 20 mg PO QHS [facility] Last Admin: 05/11/18 21:15 Dose: 20 mg Vitamin D (Vitamin D3) 1,000 unit PO DAILY [facility] Last Admin: 05/12/18 09:26 Dose: 1,000 unit Physical Exam - Vital Signs Vital Signs: Vital Signs - Last 24 Hrs Temp Pulse Resp BP BP Pulse Ox 05/12/18 09:09 97.5 F L 151/84 05/12/18 08:00 97.5 F L 76 20 151/84 98 05/11/18 20:00 98.5 F 72 17 118/64 95 - General Limitations: No limitations - Head Head exam: Atraumatic, Normocephalic - Eye Eye exam: Normal appearance - ENT ENT exam: Normal exam Ear exam: Normal external inspection Nasal Exam: Normal inspection Throat exam: Normal inspection - Neck Neck exam: Normal inspection - Respiratory Respiratory exam: Normal lung sounds bilaterally. negative: Accessory muscle use - Cardiovascular Cardiovascular Exam: Regular rate, Normal rhythm, Normal heart sounds Peripheral Pulses: 3+: Radial (R), Radial (L), Dorsalis Pedis (R), Dorsalis Pedis (L) - GI/Abdominal GI/Abdominal exam: Soft, Normal bowel sounds - Rectal Rectal exam: Deferred - exam: Deferred - Extremities Extremities exam: Joint swelling (right hip), Tenderness (r hip) - Back Back exam: Reports: Normal inspection - Neurological Neurological exam: Abnormal gait (right leg toe touch), Alert, Oriented X3 - Psychiatric Psychiatric exam: Normal affect, Normal mood - Skin Skin exam: Dry, Normal color (except right hip bruising) H&P Results - Labs Result Diagrams: 05/12/18 14:07 Labs Last 24 Hours: Laboratory Results - last 24 hr 05/12/18 14:07 Potassium 4.4 - Chest X-Ray In Last 90 Days Chest X-Ray Within Last 90 Days: No Status: Pending Discharge Potential - Discharge Needs Community Services Used Prior to Admission: None Patient Discharge Plan Description: Return Home Plan - Swing Bed Certification Initial Certification Due: 05/10/18 14 Day Re-Cert Due: 05/24/18 44 Day Re-Cert Due: 06/23/18 74 Day Re-Cert Due: 07/23/18 - Detailed Diagnosis and Plan (1) Physical deconditioning Current Visit: Yes Status: Acute Base Code: R53.81 - OTHER MALAISE Comment : 05/10/18 -admission to swing bed for rehab s/p right ORIF after falling off bar stool -Surgery completed [facility], pt to follow up with Dr Davis [facility] -PT and OT josué completed awaiting ortho release to start ambulation and strengthening 05/12/18 skin check sacral, elbows pwd, batsheva heels chronic dry, cracked, and calused maceration area between buttocks noted, sensicare to be applied to clean dry skin by nursing (pt has urine incontienence issues and wears briefs or pads during the day (2) Full code status Current Visit: Yes Status: Acute Base Code: Z78.9 - OTHER SPECIFIED HEALTH STATUS (3) DVT prophylaxis Current Visit: Yes Status: Acute Base Code: [id number] - Comment: 05/10/18 -lovenox 40mg SQ 3 weeks per ortho d/c
[2018-05-12] MEDS: SIMVASTATIN 20 MG TABLET PO SCH (21:25)
[2018-05-12 22:20] LABS: URINE APPEARANCE CLEAR; URINE BILIRUBIN NEGATIVE (NEGATIVE); URINE BLOOD TRACE-I (NEGATIVE); URINE COLOR YELLOW; URINE GLUCOSE (UA) NEGATIVE (NEGATIVE); URINE KETONE NEGATIVE (NEGATIVE); URINE LEUKOCYTE ESTERASE NEGATIVE (NEGATIVE); URINE NITRITE NEGATIVE (NEGATIVE); URINE PROTEIN NEGATIVE (NEGATIVE); URINE UROBILINOGEN 0.2 E.U./dL (0.20 - 1.00)
[2018-05-12 22:25] LABS: URINE RBC 0 - 2 (NONE SEEN); URINE WBC NONE SEEN (0-2/hpf)
[2018-05-13] MEDS: HYDROCODONE/APAP 5/325MG TABLET PO PRN ×2 (01:03→12:09)
[2018-05-13] MEDS: ONDANSETRON 4 MG ODT TABLET SL PRN ×2 (01:04→06:54)
[2018-05-13] MEDS: PHENAZOPYRIDINE HCL 95 MG TABLET PO PRN ×2 (02:50→20:27)
[2018-05-13] MEDS: ACETAMINOPHEN 500 MG TABLET PO PRN (06:52)
--- NOTE | 2018-05-13 07:47 | RADIOLOGY REPORT ---
EXAM: CHEST, SINGLE VIEW HISTORY: REHAB PLACEMENT. STATUS POST HIP SURGERY. TECHNIQUE: A single portable AP upright view of the chest was performed. Comparison: None. FINDINGS: The heart, mediastinum, and pulmonary vasculature are normal. The lungs are clear. There is no pneumothorax or effusion. Degenerative changes are present within the spine and shoulders. IMPRESSION: NO ACUTE CHEST PATHOLOGY. JOB NUMBER: [id number] MTDD
--- NOTE | 2018-05-13 09:33 | Occupational Therapy Tx Note ---
Occupational Therapy Tx Note - Treatment Note Tolerated: Good Total Time Spent With Patient: 45 (ADL) Occupational Therapy Treatment Note: Detail (S: Pt resting in bed, reports she is feeling less pain and moving better. O: Supine to sit Indly with mod difficulty moving right leg to EOB. Sit to stand and amb to commode with 2 wheeled walker and SBA. Pt completed toileting including briefs Indly. Pt amb to sink and completed sponge bath in sitting and standing Indly with exception of batsheva feet. Pt donned bra, shirt and sweatpants with cues for modified LE dressing techniques, she was Ind with sit to stand using walker and TTWB status on right LE. Pt was Ind with donning left slipper sock but she was unable to bend to reach right foot and required total assist to don right slipper sock. Pt able to brush hair at sink Indly. Pt amb back to chair with 2 wheeled walker and SBA. Pt left up in chair with breakfast. A: Modified Ind with partial body dressing and partial body sponge bathing (unable to reach right foot), significant improvement in functional mobility and minimal fatigue noted during OT session.) Occupational Therapy Problem List: Detail (1. Decreased Ind with functional mobility needed for safe and Ind ADLs/IADLs. 2. Decreased Ind with self care tasks. 3. Decreased endurance due to pain and mobility limitations.) Occupational Therapy Goals: 1. Pt will be Ind with bed mobility and sit to stand transfers to allow Ind with self care activities. 2. Pt will be Ind with total body dressing. 3. Pt will be safe and Ind with showering in sitting or standing. 4. Pt will demonstrate improved endurance to allow Ind with ADLs/IADLs. Prognosis: Good Occupational Therapy Plan: OT 2-4 times weekly to address goals and problem list above.
[2018-05-13] MEDS: MAGNESIUM OXIDE 400 MG TABLET PO SCH (09:36)
[2018-05-13] MEDS: POTASSIUM CHLORIDE 20 MEQ TABLET PO SCH (09:36)
[2018-05-13] MEDS: DOCUSATE SODIUM 100 MG CAPSULE PO SCH ×2 (09:36→21:52)
[2018-05-13] MEDS: CALCIUM CARBONATE 500 MG TAB.CHEW PO SCH (09:36)
[2018-05-13] MEDS: HYDROCHLOROTHIAZIDE 25 MG TABLET PO SCH (09:36)
[2018-05-13] MEDS: ASPIRIN 81 MG TABEC PO SCH (09:36)
[2018-05-13] MEDS: LOSARTAN POTASSIUM 100 MG TABLET PO SCH (09:36)
[2018-05-13] MEDS: CHOLECALCIFEROL 1,000 UNIT TABLET PO SCH (09:36)
[2018-05-13] MEDS: ENOXAPARIN 40 MG/0.4 ML SYR SQ SCH (09:37)
--- NOTE | 2018-05-13 13:39 | Physical Therapy Tx Note ---
Physical Therapy Tx Note - Treatment Note Tolerated: Good Total Time Spent With Patient: 25 Physical Therapy Tx Note: Detail (The patient ambulated with front wheeled 65 feet x 1,TTWB on the R LE with supervision for safety. The patient was fatigued after ambulating. The patient was independent with supine to sit with head of bed raised using R UE to lift R LE into bed. The patient completed the following R LE exercises: ankle pumps, gluteal sets, quad sets x 10 reps, assisted SLR with use of strap x 3 reps, assisted hip abduction x 5 reps,heel slides x 3 reps. The patient continues to exhibit decreased R LE strength but has improved mobility overall.) Physical Therapy Problem List: Detail (1) Decreased R LE strength 2) Assistance with bed mobility 3) Assistance with transfers 4) Limited ambulation distance 5 ) R hip pain) Physical Therapy Goals: 1) The patient will be independent with bed mobility. 2 ) The patient will be independent with all transfers including car transfers. 3 ) Increase LE strength 1/3 muscle grade to improve functional mobility. 4) The patient will be independent with ambulation with appropriate assistive device household distances as required in home, with TTWB. 5) The patient will ambulate on steps with supervision for safety. 6) The patient will be independent with LE strengthening HEP. Physical Therapy Plan: PT 1-2 times a day M-F for gait training on levels and stairs, education of TTWB status throughout all weight bearing activities, LE strengthening exercises, transfer training, bed mobility.
[2018-05-13] MEDS: SIMVASTATIN 20 MG TABLET PO SCH (21:52)
[2018-05-14] MEDS: HYDROCODONE/APAP 5/325MG TABLET PO PRN ×2 (07:45→11:57)
--- NOTE | 2018-05-14 10:59 | Physical Therapy Tx Note ---
Physical Therapy Tx Note - Treatment Note Tolerated: Good Total Time Spent With Patient: 35 Physical Therapy Tx Note: Detail (The patient was in bed when PT arrived. The patient ambulated with supervision only TTWB R LE with front wheeled walker. The patient dressed upper body independently and required minimal PA with LE's. The patient was taken to Rehab dept. The patient ambulated on steps (4 inch) with use of railing and folded walker with supervision for safety only. The patient completed the following exercises including: hip abduction supine x 3 reps, assisted SLR x 3 reps, quad sets x 10 reps, the patient was unable to complete heel slides. The patient was independent with bed mobility lifting R LE with hands. The patient was able to acheive supine hip abduction and adduction without assist. The patient was safe and used proper technique on the stairs.) Physical Therapy Problem List: Detail (1) Decreased R LE strength 2) Assistance with bed mobility 3) Assistance with transfers 4) Limited ambulation distance 5 ) R hip pain) Physical Therapy Goals: 1) The patient will be independent with bed mobility. 2 ) The patient will be independent with all transfers including car transfers. 3 ) Increase LE strength 1/3 muscle grade to improve functional mobility. 4) The patient will be independent with ambulation with appropriate assistive device household distances as required in home, with TTWB. 5) The patient will ambulate on steps with supervision for safety. 6) The patient will be independent with LE strengthening HEP. Physical Therapy Plan: PT 1-2 times a day M-F for gait training on levels and stairs, education of TTWB status throughout all weight bearing activities, LE strengthening exercises, transfer training, bed mobility.
[2018-05-14] MEDS: ENOXAPARIN 40 MG/0.4 ML SYR SQ SCH (11:09)
[2018-05-14] MEDS: DOCUSATE SODIUM 100 MG CAPSULE PO SCH ×2 (11:09→21:31)
[2018-05-14] MEDS: CHOLECALCIFEROL 1,000 UNIT TABLET PO SCH (11:10)
[2018-05-14] MEDS: MAGNESIUM OXIDE 400 MG TABLET PO SCH (11:10)
[2018-05-14] MEDS: LOSARTAN POTASSIUM 100 MG TABLET PO SCH (11:10)
[2018-05-14] MEDS: PHENAZOPYRIDINE HCL 95 MG TABLET PO PRN (11:11)
[2018-05-14] MEDS: ASPIRIN 81 MG TABEC PO SCH (11:11)
[2018-05-14] MEDS: HYDROCHLOROTHIAZIDE 25 MG TABLET PO SCH (11:11)
[2018-05-14] MEDS: CALCIUM CARBONATE 500 MG TAB.CHEW PO SCH (11:12)
[2018-05-14] MEDS: POTASSIUM CHLORIDE 20 MEQ TABLET PO SCH (11:19)
--- NOTE | 2018-05-14 14:45 | Occupational Therapy Tx Note ---
Occupational Therapy Tx Note - Treatment Note Tolerated: Good Total Time Spent With Patient: 45 (ADL) Occupational Therapy Treatment Note: Detail (S: Pt resting in bed, reports she feels tired this afternoon. O: Supine to sit Indly, sit to stand and amb to commode with 2 wheeled walker and SBA. Pt completed toileting Indly. Doffed shirt, bra, sweatpants and briefs Indly. Pt amb to shower and completed total body shower in sitting and standing with grab bars and SBA. Pt dried self Indly. Pt amb to EOB with 2 wheeled walker and SBA. She was able to complete donning bra, shirt, briefs and sweatpants with modified LE dressing techniques Indly. Pt donned left slipper sock Indly and she was able to start right slipper sock over toes but required assist to pull worker heel. Reviewed adaptive equipment and pt feels she will be able to don socks in a day or two Indly. Sit to supine Indly and pt scooted up in bed Ind with hospital bed rails. A: Ind with showering in sitting and standing with grab bar, Ind with total body dressing with exception of right slipper sock, significantly improved endurance) Occupational Therapy Problem List: Detail (1. Decreased Ind with functional mobility needed for safe and Ind ADLs/IADLs. 2. Decreased Ind with self care tasks. 3. Decreased endurance due to pain and mobility limitations.) Occupational Therapy Goals: 1. Pt will be Ind with bed mobility and sit to stand transfers to allow Ind with self care activities. 2. Pt will be Ind with total body dressing. 3. Pt will be safe and Ind with showering in sitting or standing. 4. Pt will demonstrate improved endurance to allow Ind with ADLs/IADLs. Prognosis: Good Occupational Therapy Plan: OT 2-4 times weekly to address goals and problem list above.
[2018-05-14] MEDS: SIMVASTATIN 20 MG TABLET PO SCH (21:31)
[2018-05-15] MEDS: ACETAMINOPHEN 500 MG TABLET PO PRN (02:17)
--- NOTE | 2018-05-15 08:03 | Occupational Therapy Tx Note ---
Occupational Therapy Tx Note - Treatment Note Tolerated: Good Total Time Spent With Patient: 30 (ADL) Occupational Therapy Treatment Note: Detail (S: Pt in bed, ready to get up. O : Supine to sit Indly, sit to stand and amb to toilet with 2 wheeled walker Indly with TTWB on right LE. Pt completed toileting on raised commode Indly. Pt doffed briefs Indly and donned clean briefs with turbogenerator operator and verbal cues. Pt donned sweat pants Indly using turbogenerator operator. Pt amb to sink and washed hands Indly. Pt amb to EOB with 2 wheeled walker Indly. Pt completed upper body dressing Indly. Pt donned slipper socks with use of turbogenerator operator and verbal cues for right foot. Pt amb to chair Indly with walker. A: Pt is Ind with modified LE dressing and toileting using commode. Endurance is significantly improved.) Occupational Therapy Problem List: Detail (1. Decreased Ind with functional mobility needed for safe and Ind ADLs/IADLs. 2. Decreased Ind with self care tasks. 3. Decreased endurance due to pain and mobility limitations.) Occupational Therapy Goals: 1. Pt will be Ind with bed mobility and sit to stand transfers to allow Ind with self care activities. 2. Pt will be Ind with total body dressing. 3. Pt will be safe and Ind with showering in sitting or standing. 4. Pt will demonstrate improved endurance to allow Ind with ADLs/IADLs. Prognosis: Good Occupational Therapy Plan: OT 2-4 times weekly to address goals and problem list above.
[2018-05-15] MEDS: HYDROCHLOROTHIAZIDE 25 MG TABLET PO SCH (09:38)
[2018-05-15] MEDS: POTASSIUM CHLORIDE 20 MEQ TABLET PO SCH (09:38)
[2018-05-15] MEDS: DOCUSATE SODIUM 100 MG CAPSULE PO SCH ×2 (09:38→21:24)
[2018-05-15] MEDS: CHOLECALCIFEROL 1,000 UNIT TABLET PO SCH (09:38)
[2018-05-15] MEDS: LOSARTAN POTASSIUM 100 MG TABLET PO SCH (09:38)
[2018-05-15] MEDS: ASPIRIN 81 MG TABEC PO SCH (09:38)
[2018-05-15] MEDS: CALCIUM CARBONATE 500 MG TAB.CHEW PO SCH (09:39)
[2018-05-15] MEDS: ENOXAPARIN 40 MG/0.4 ML SYR SQ SCH (09:39)
[2018-05-15] MEDS: MAGNESIUM OXIDE 400 MG TABLET PO SCH (09:39)
--- NOTE | 2018-05-15 16:25 | Physical Therapy Tx Note ---
Physical Therapy Tx Note - Treatment Note Tolerated: Good Total Time Spent With Patient: 30 Physical Therapy Tx Note: Detail (The patient was brought to PT department. The patient was able to problem solve in kitchen to reach into cupboards and carry objects to table. The patient ambulate with front wheeled walker TTWB on R LE a distance of 40 feet x 1, 10 feet x 1. The patient completed the following LE exercises on mat table: assisted hip abduction x 3 reps, assisted heel slides x 3 reps, SLR with use of strap x 3 reps, hip adductor squeezes x 5 reps, SAQ x 10 reps. The patient continues to progress well with exercises.) Physical Therapy Problem List: Detail (1) Decreased R LE strength 2) Assistance with bed mobility 3) Assistance with transfers 4) Limited ambulation distance 5 ) R hip pain) Physical Therapy Goals: 1) The patient will be independent with bed mobility. 2 ) The patient will be independent with all transfers including car transfers. 3 ) Increase LE strength 1/3 muscle grade to improve functional mobility. 4) The patient will be independent with ambulation with appropriate assistive device household distances as required in home, with TTWB. 5) The patient will ambulate on steps with supervision for safety. 6) The patient will be independent with LE strengthening HEP. Physical Therapy Plan: PT 1-2 times a day M-F for gait training on levels and stairs, education of TTWB status throughout all weight bearing activities, LE strengthening exercises, transfer training, bed mobility.
[2018-05-15] MEDS: SIMVASTATIN 20 MG TABLET PO SCH (21:24)
[2018-05-16] MEDS: DOCUSATE SODIUM 100 MG CAPSULE PO SCH ×2 (09:08→22:09)
[2018-05-16] MEDS: ASPIRIN 81 MG TABEC PO SCH (09:08)
[2018-05-16] MEDS: HYDROCHLOROTHIAZIDE 25 MG TABLET PO SCH (09:09)
[2018-05-16] MEDS: POTASSIUM CHLORIDE 20 MEQ TABLET PO SCH (09:09)
[2018-05-16] MEDS: CHOLECALCIFEROL 1,000 UNIT TABLET PO SCH (09:09)
[2018-05-16] MEDS: LOSARTAN POTASSIUM 100 MG TABLET PO SCH (09:10)
[2018-05-16] MEDS: CALCIUM CARBONATE 500 MG TAB.CHEW PO SCH (09:10)
[2018-05-16] MEDS: MAGNESIUM OXIDE 400 MG TABLET PO SCH (09:10)
[2018-05-16] MEDS: ENOXAPARIN 40 MG/0.4 ML SYR SQ SCH (09:11)
--- NOTE | 2018-05-16 11:36 | Physical Therapy Tx Note ---
Physical Therapy Tx Note - Treatment Note Tolerated: Good Total Time Spent With Patient: 40 Physical Therapy Tx Note: Detail (Patient was seated in chair upon SIZE MARKER arrival. Patient transferred sit to and from stand SBA x1. Patient ambulated 10 feet x2 with wheeled walker SBA x1. Patient doffed hospital socks, attempted to don pts socks but was unable to don sock on right foot. Patient attempted to don right shoe but was unable to due to right foot inflammation. Patient donned hospital socks independently with using commercial banker. Patient transferred sit to and from stand SBA x1. Patient ambulated 74 feet with wheeled walker SBA x1 with toe touch weightbearing right LE. Patient transferred sit to supine independently with using strap to lift right LE. Patient scooted over in bed independently. Patient performed the following exercises x5-10 reps each: hip abduction slides with strap, SLR with strap, quad sets, glut squeezes, ankle pumps, isometric hip adduction, and knee flexion heel slides with strap. Patient transferred supine to sit independently. Patient transferred sit to and from stand SBA x1. Patient ambulated 13 feet with wheeled walker SBA x1. Patient transferred sit to and from stand SBA x1. Patient ambulated 10 feet with wheeled walker SBA x1. Patient reports feeling tired after treatment. Patient displays good understanding of HEP consisting of ankle pumps, heel slides, SLR with strap, and hip abduction with strap. Patient was left reclined in chair with call light within reach.) Physical Therapy Problem List: Detail (1) Decreased R LE strength 2) Assistance with bed mobility 3) Assistance with transfers 4) Limited ambulation distance 5 ) R hip pain) Physical Therapy Goals: 1) The patient will be independent with bed mobility. 2 ) The patient will be independent with all transfers including car transfers. 3 ) Increase LE strength 1/3 muscle grade to improve functional mobility. 4) The patient will be independent with ambulation with appropriate assistive device household distances as required in home, with TTWB. 5) The patient will ambulate on steps with supervision for safety. 6) The patient will be independent with LE strengthening HEP. Prognosis: Good Physical Therapy Plan: PT 1-2 times a day M-F for gait training on levels and stairs, education of TTWB status throughout all weight bearing activities, LE strengthening exercises, transfer training, bed mobility.
[2018-05-16] MEDS: HYDROCODONE/APAP 5/325MG TABLET PO PRN (14:21)
--- NOTE | 2018-05-16 15:45 | Physical Therapy Tx Note ---
Physical Therapy Tx Note - Treatment Note Tolerated: Good Total Time Spent With Patient: 20 Physical Therapy Tx Note: Detail (Patient was reclined in bed upon LEATHER SPRAYER arrival. Patient states 5/10 pain in right hip this afternoon, more sore. Patient performed the following exercises x10 reps each: glut squeezes, quad sets, ankle pumps, and abdominal isometrics. Patient transferred supine to sit min assist x1 to lift right LE. Patient transferred sit to and from stand SBA x1. Patient ambulated 13 feet with wheeled walker SBA x1. Patient transferred sit to and from stand SBA x1. Patient ambulated 78 feet with wheeled walker SBA x1 with toe touch weight bearing. Patient transferred sit to supine independently. Patient tolerated treatment well. Patient reports feeling tired and hip sore after treatment. Patient was left reclined in bed with call light within reach.) Physical Therapy Problem List: Detail (1) Decreased R LE strength 2) Assistance with bed mobility 3) Assistance with transfers 4) Limited ambulation distance 5 ) R hip pain) Physical Therapy Goals: 1) The patient will be independent with bed mobility. 2 ) The patient will be independent with all transfers including car transfers. 3 ) Increase LE strength 1/3 muscle grade to improve functional mobility. 4) The patient will be independent with ambulation with appropriate assistive device household distances as required in home, with TTWB. 5) The patient will ambulate on steps with supervision for safety. 6) The patient will be independent with LE strengthening HEP. Prognosis: Good Physical Therapy Plan: Anticipate patient discharge from inpatient PT at this time.
[2018-05-16] MEDS: SIMVASTATIN 20 MG TABLET PO SCH (22:08)
--- NOTE | 2018-05-17 07:55 | Discharge Summary ---
Providers Discharge Summary Date: 05/17/18 Date of admission: 05/10/18 13:48 Expected Date of Discharge: 05/17/18 Attending physician: MARLON HDEZ Primary care physician: TERRIE ROLDAN D.O. Physical Exam - Vital Signs Vital Signs: Vital Signs - Last 24 Hrs Temp Pulse Resp BP BP Pulse Ox 05/16/18 20:00 98.4 F 74 16 167/69 98 05/16/18 08:00 98.1 F 68 18 157/69 98 - General General Appearance: Alert, Oriented x3, Cooperative, No acute distress Limitations: No limitations - Head Head exam: Atraumatic, Normocephalic - Eye Eye exam: Normal appearance - ENT ENT exam: Normal exam Ear exam: Normal external inspection Nasal Exam: Normal inspection Throat exam: Normal inspection - Neck Neck exam: Normal inspection - Respiratory Respiratory exam: Normal lung sounds bilaterally. negative: Accessory muscle use - Cardiovascular Cardiovascular Exam: Regular rate, Normal rhythm, Normal heart sounds Peripheral Pulses: 3+: Radial (R), Radial (L), Dorsalis Pedis (R), Dorsalis Pedis (L) - GI/Abdominal GI/Abdominal exam: Soft, Normal bowel sounds - Rectal Rectal exam: Deferred - exam: Deferred - Extremities Extremities exam: Joint swelling (right hip), Tenderness (r hip) - Back Back exam: Reports: Normal inspection - Neurological Neurological exam: Abnormal gait (right leg toe touch), Alert, Oriented X3 - Psychiatric Psychiatric exam: Normal affect, Normal mood - Skin Skin exam: Dry, Normal color (except right hip bruising) Hospitalization - Hospitalization Admission Diagnosis: deconditioning related to right hip fracture. - Problem List/Discharge Diagnosis (1) Physical deconditioning Current Visit: Yes Status: Acute Base Code: R53.81 - OTHER MALAISE Comment : 05/17/18 -admission to swing bed for rehab s/p right ORIF after falling off bar stool [facility] to follow up with Dr Susan FOX on 05/22 -Home PT ordered (2) DVT prophylaxis Current Visit: Yes Status: Acute Base Code: [id number] - Comment: 05/17/18 -lovenox 40mg SQ 3 weeks per ortho d/c (3) Full code status Current Visit: Yes Status: Acute Base Code: Z78.9 - OTHER SPECIFIED HEALTH STATUS Comment: 05/17/18: -Pt. 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 Pt had total replacement at [facility]. PMH HTN, hyperlipidemia, arthritis, and urinary incontinence. 05/06/18 Pt was at a bar in [place], foot was caught on her purse strap, fell off the stool and broke right hip. XR reports reveals 13mm displacement, pt completed R ORIF and was tranfered to [facility] 2 days s/p surgery for rehab. Pt lives in [facility] and wanted rehab close to home. Pt was instructed to follow up with [facility] ortho thierry 10-14 days but the travel is too burdensome for pt (per pt) and requests to have local follow up was made. Original ortho and Dr Davis have agreed to local follow up. Dr Davis will see pt for follow up. PT and OT have evaluated pt and will begin to work with her on basic ADLs and progress once Dr Davis gives post op release, at this time pt is restricted to toe touch wgt bearing right leg. Incision covered with sterile gauze and transparent tegaderm. Incision and probable drain site noted. No active bleeding, no surrounding redness noted. Distal bruising to post hip/leg but soft. DP/PT pulses +3, remaining skin pwd. 05/17/18: Pt. has been progressing well with PT/OT. VS and labs have remained stable throughout hospitalization. Plan to d/c home today. F/U with Dr. Davis is scheduled for 05/22/18. Right hip drsg has remained c/d/i. Will continue lovenox 40mg sc daily until 05/27 per ortho d/c instructions. Home PT ordered. PCP: Dr. Roldan Procedures: Imaging and X-Rays 05/12/18 14:39 CHEST 1 VIEW [RAD] Stat Abnormal Labs: Abnormal Lab Results 05/10/18 Range/Units 14:52 Potassium 3.2 L (3.4-4.5) mmol/L Random Glucose 135 H (74-109) mg/dL Condition at Discharge: (2) Stable Discharge Medications - Discharge Medications Prescriptions: Enoxaparin Sodium [Lovenox] 40 mg SQ DAILY #10 syr Hydrocodone/APAP 5/325Mg [[place] 5Mg/325Mg] 1 each PO Q6H PRN #12 tab PRN Reason: Pain - Mod To Severe (5-10) Home Medications: Ambulatory Orders Aspirin [Aspir-Low] 81 mg PO DAILY 11/02/17 [Last Taken 11/05/17] Calcium Carbonate [Calcium] 600 mg PO DAILY 11/02/17 [Last Taken 11/05/17] Cholecalciferol (Vitamin D3) [Vitamin D3] 1,000 unit PO DAILY 11/02/17 [Last Taken 11/05/17] Hydrochlorothiazide [Hctz] 25 mg PO DAILY 11/02/17 [Last Taken 11/05/17] Potassium Chloride 20 meq PO DAILY 11/02/17 [Last Taken 11/05/17] Simvastatin [Zocor] 20 mg PO QHS 11/02/17 [Last Taken 11/05/17] Telmisartan [Micardis] 80 mg PO DAILY 11/02/17 [Last Taken 11/05/17] Enoxaparin Sodium [Lovenox] 40 mg SQ DAILY #10 syr 05/17/18 [Last Taken Unknown] Hydrocodone/APAP 5/325Mg [[place] 5Mg/325Mg] 1 each PO Q6H PRN #12 tab 05/17/18 [ Last Taken Unknown] Phenazopyridine HCl [Azo Urinary Pain Relief] 190 mg PO TID PRN tablet [Last Taken Unknown] Discharge Plan - Discharge Instructions Activity at Discharge: As Per Physical Therapy Diet at Discharge: Regular Diet Dressing Change: As needed Additional Instructions: Follow up with Dr. Davis on 05/22/18 as scheduled Continue lovenox 40mg injection daily until complete (first home dose tomorrow morning) [place] 5-325mg up to every 6 hours for severe pain only- do not drive or operate machinery while taking. Quality Measures - Quality Measures Quality Measures: Advance Directives, Documentation of Current Medications in Medical Record, Elder Maltreatment Screen and Follow-Up Plan, Screening for High Blood Pressure and F/U Documented - Current Medications Quality Measure: Measure #130: Documentation of Current Medications Documentation of Current Medications: <Current Medications Documented/Reviewed> [A2764] - Blood Pressure Screening Quality Measure: Screening for High Blood Pressure and Follow-Up Documented Does Patient Have Any of the Following: Active Dx of HTN Blood Pressure Classification: Pre-Hypertensive BP Reading Systolic Measurement: 151 Diastolic Measurement: 84 Screening for High Blood Pressure: Patient Exclusion, Hx of HTN [G9744] - Advance Directives Quality Measure: Measure #47: Care Plan Advance Directives Established: No Advance Directives Information Provided To Patient: No Advance Directives on File: No Living Will: No Power of Class B Driver: No Advance Care Planning: <Care Plan/Decision Maker Documented; Discussed & Documented> [6373F] - Elder Abuse Suspicion Index Screening: Elder Abuse Suspicion Index Screening Rely on people for bathing, dressing, shopping, banking, etc: No Prevented from getting food, clothes, medication, etc: No Made to feel shamed or threatened by someone: No Forced to sign papers or use money against will: No Feel afraid, touched in ways not wanted or hurt physically: No Poor eye contact, withdrawn, malnourished, cuts or bruises: No Screening Result: Negative result EASI Reference Information: Xavier KINSEY, Ryan C, Juan D, Lang Mejia.Development and validation of a tool to assist physicians identification of elder abuse: The Elder Abuse Suspicion Index (EASI ). Journal of Elder Abuse and Neglect, 2008; 20 (3): 276-300. - Elder Maltreatment Screen Quality Measures: Elder Maltreatment Screen and Follow-Up Plan Elder Maltreatment Screen: <Negative, No Follow-Up Plan Required> [[id number]]
[2018-05-17] MEDS: LOSARTAN POTASSIUM 100 MG TABLET PO SCH (09:49)
[2018-05-17] MEDS: CALCIUM CARBONATE 500 MG TAB.CHEW PO SCH (09:49)
[2018-05-17] MEDS: MAGNESIUM OXIDE 400 MG TABLET PO SCH (09:49)
[2018-05-17] MEDS: DOCUSATE SODIUM 100 MG CAPSULE PO SCH (09:49)
[2018-05-17] MEDS: HYDROCHLOROTHIAZIDE 25 MG TABLET PO SCH (09:49)
[2018-05-17] MEDS: ASPIRIN 81 MG TABEC PO SCH (09:49)
[2018-05-17] MEDS: CHOLECALCIFEROL 1,000 UNIT TABLET PO SCH (09:49)
[2018-05-17] MEDS: POTASSIUM CHLORIDE 20 MEQ TABLET PO SCH (09:49)
[2018-05-17] MEDS: ENOXAPARIN 40 MG/0.4 ML SYR SQ SCH (09:50)
[2018-05-17 10:42] LABS: BLOOD UREA NITROGEN 14 mg/dL (8-23); CREATININE 0.4 mg/dL (0.5-0.9); EST GLOMERULAR FILTRATION RATE > 60 mL/min; GLUCOSE,RANDOM 93 mg/dL (74-109)
--- NOTE | 2018-05-17 13:37 | Rehab Discharge Summary ---
Patient Information - Patient Information Diagnosis: deconditioning related to right hip fracture Ordered Treatment: OT Evaluate and Treat Surgery: Yes (ORIF right hip) Date of Surgery: 05/08/18 History: Detail (Pt fell on 05/06/18 sustaining a right intertrochanteric fracture. She underwent an ORIF on 05/08/18.) Past Medical/Surgical Hx: PAST MEDICAL/SURGICAL HISTORY Past Surgical History appendectomy, hysterectomy, bone spur left heel 2010 & 2011, tubal, D&C, cholescystectomy, bladder suspension, bilateral total knee, PMH - Respiratory Hx Respiratory Disorders No PMH - Cardiovascular Hx Cardiovascular Disorders Yes Hx Hypertension Yes Comment: high cholesterol PMH - Neuro Hx Neurological Disorders No Hx Seizures No PMH - GI Hx Gastrointestinal Disorders No PMH - Hx Genitourinary Disorders Yes Hx Age of Menopause 44 Patient No Hx Bladder Problem Yes: incont. PMH - Endocrine Hx Endocrine Disorders No PMH - Musculoskeletal Hx Musculoskeletal Disorders Yes Hx Arthritis Yes Hx Fibromyalgia Yes PMH - Psych Hx Psychiatric Problems No PMH - Hematology/Oncology Hx Hematology/Oncology No Disorders Premorbid Status: Detail (Pt lives alone in a 2 story house with basement, she generally stays on the main level although she has a freezer in the basement. She has 1 step, no railing at the entrance. She has a tub/shower combination and typically stands to shower. She has an elevated toilet with a grab bar which is also within reach of the tub. She was Ind with all ADLs/IADLs and driving. She has a 2 wheeled walker, crutches and access to a wheelchair.) Social History: Detail (Pt has supportive family members who were present for evaluation.) Precautions: [place], Fall, Other (TTWB right LE) Subjective Information - Subjective Information Per Patient Objective Data - Pain Pain Present: No - Mental Status Patient Orientation: Oriented x3 - Visual Perception Appears within normal limits for therapeutic activities - ROM Within normal limits (Ant UE AROM WNL) - Strength/Tone Within normal limits (Ant UE strength 5/5 throughout) - Coordination Appears within normal limits for therapeutic activities - Bed Mobility Independent (Ind with supine to sit and sit to supine) - Transfers Independent (Ind with sit to stand from EOB, chair and commode heights) - Balance Balance Sitting: Good Balance Standing: Good - Sensation Intact - Gait Detail (Pt ambulating household distances with 2 wheeled walker.) - ADL's/IADL's Detail (Pt demonstrates Ind with showering in sitting and standing, grooming, hygiene and total body dressing using care analyst.) Therapy Assessment - Therapy Assessment Detail (Pt is safe and Ind with functional mobility and self cares.) Problem List - Problem List Physical Therapy Problem List: Detail (1) Decreased R LE strength 2) Assistance with bed mobility 3) Assistance with transfers 4) Limited ambulation distance 5 ) R hip pain) Occupational Therapy Problem List: Detail (1. Decreased Ind with functional mobility needed for safe and Ind ADLs/IADLs. 2. Decreased Ind with self care tasks. 3. Decreased endurance due to pain and mobility limitations.) Goals - Goals Physical Therapy Goals: 1) The patient will be independent with bed mobility. 2 ) The patient will be independent with all transfers including car transfers. 3 ) Increase LE strength 1/3 muscle grade to improve functional mobility. 4) The patient will be independent with ambulation with appropriate assistive device household distances as required in home, with TTWB. 5) The patient will ambulate on steps with supervision for safety. 6) The patient will be independent with LE strengthening HEP. Occupational Therapy Goals: Goals Met: 1. Pt will be Ind with bed mobility and sit to stand transfers to allow Ind with self care activities. 2. Pt will be Ind with total body dressing. 3. Pt will be safe and Ind with showering in sitting or standing. 4. Pt will demonstrate improved endurance to allow Ind with ADLs/IADLs. Prognosis - Prognosis Good Plan - Plan Physical Therapy Plan: Anticipate patient discharge from inpatient PT at this time. Occupational Therapy Plan: Pt is discharged home with home OT.
--- NOTE | 2018-05-17 13:48 | Rehab Evaluation ---
Patient Information - Patient Information Diagnosis: deconditioning related to right hip fracture Ordered Treatment: PT Evaluate and Treat Surgery: Yes (ORIF right hip) Date of Surgery: 05/08/18 History: Detail (Pt fell on 05/06/18 sustaining a right intertrochanteric fracture. She underwent an ORIF on 05/08/18.) Past Medical/Surgical Hx: PAST MEDICAL/SURGICAL HISTORY Past Surgical History appendectomy, hysterectomy, bone spur left heel 2010 & 2011, tubal, D&C, cholescystectomy, bladder suspension, bilateral total knee, PMH - Respiratory Hx Respiratory Disorders No PMH - Cardiovascular Hx Cardiovascular Disorders Yes Hx Hypertension Yes Comment: high cholesterol PMH - Neuro Hx Neurological Disorders No Hx Seizures No PMH - GI Hx Gastrointestinal Disorders No PMH - Hx Genitourinary Disorders Yes Hx Age of Menopause 44 Patient No Hx Bladder Problem Yes: incont. PMH - Endocrine Hx Endocrine Disorders No PMH - Musculoskeletal Hx Musculoskeletal Disorders Yes Hx Arthritis Yes Hx Fibromyalgia Yes PMH - Psych Hx Psychiatric Problems No PMH - Hematology/Oncology Hx Hematology/Oncology No Disorders Premorbid Status: Detail (Pt lives alone in a 2 story house with basement, she generally stays on the main level although she has a freezer in the basement. She has 1 step, no railing at the entrance. She has a tub/shower combination and typically stands to shower. She has an elevated toilet with a grab bar which is also within reach of the tub. She was Ind with all ADLs/IADLs and driving. She has a 2 wheeled walker, crutches and access to a wheelchair.) Social History: Detail (Pt has supportive family members who were present for evaluation.) Precautions: [place], Fall, Other (TTWB right LE) Subjective Information - Subjective Information Per Patient (The patient had occasional R hip pain and quadricep soreness especially after LE strengthening exercises. The patient did not rate her pain using 0-10 pain scale.) Objective Data - Mental Status Patient Orientation: Oriented x3 - Visual Perception Appears within normal limits for therapeutic activities - ROM Within normal limits (The patient's R LE PROM is WFL.) - Strength/Tone Not within normal limits (The patient's L LE strength is 5/5. The patient's R LE was hip flexors and abductors 3-/5, hip adductors 3/5, hip rotators were not tested, hip extensors 3-/5, knee flexors and extensors 4/5, ankle musculature 4+ /5.) - Bed Mobility Independent (The patient was independent with supine to and from sit transfer , lifting R LE with R UE. The patient was independent with scooting up in bed.) - Transfers Independent (The patient was independent with sit to and from stand transfer. The patient was instructed in proper car transfer technique and she stated she understood. The patient also stated she was going to acquire a tub seat with a transfer bench.) - Balance Balance Sitting: Good Balance Standing: Fair (The patient required support of walker due to TTWB status.) - Gait Detail (The patient ambulated with front wheeled walker independently TTWB on the R LE a distance of 75 feet plus. The patient ambulated on 2 steps with use of railings with supervision for safety only.) Therapy Assessment - Therapy Assessment Detail (The patient was independent with mobility and ambulation household distances. The patient also has a wheelchair at home to complete wheelchair mobility. The patient also dumonstrated improved R LE strength. Home PT is recommended.) Patient Education - Patient Education Teaching Topic: Exercise/Activity (The patient was instructed in a HEP of LE strengthening exercises including : supine hip abduction, hip adductor squeezes , heel slides, assisted SLR, quad sets, gluteal sets and ankle pumps.) Response: Return Demonstration Teaching Method: Demonstration, Handout Teaching Recipient: Patient Barriers To Learning: None Problem List - Problem List Physical Therapy Problem List: Detail (1) Decreased R LE strength 2) Assistance with bed mobility 3) Assistance with transfers 4) Limited ambulation distance 5 ) R hip pain) Occupational Therapy Problem List: Detail (1. Decreased Ind with functional mobility needed for safe and Ind ADLs/IADLs. 2. Decreased Ind with self care tasks. 3. Decreased endurance due to pain and mobility limitations.) Goals - Goals Physical Therapy Goals: 1) The patient will be independent with bed mobility ( Goal met). 2) The patient will be independent with all transfers including car transfers (Goal Met). 3) Increase LE strength 1/3 muscle grade to improve functional mobility (Goal Met). 4) The patient will be independent with ambulation with appropriate assistive device household distances as required in home, with TTWB.(Goal Met). 5) The patient will ambulate on steps with supervision for safety. 6) The patient will be independent with LE strengthening HEP. Occupational Therapy Goals: Goals Met: 1. Pt will be Ind with bed mobility and sit to stand transfers to allow Ind with self care activities. 2. Pt will be Ind with total body dressing. 3. Pt will be safe and Ind with showering in sitting or standing. 4. Pt will demonstrate improved endurance to allow Ind with ADLs/IADLs. Plan - Plan Physical Therapy Plan: The patient is discharged from [facility] to home and is to receive Home PT. Occupational Therapy Plan: Pt is discharged home with home OT.
== END 2018-05-17 13:02 | disposition home health service (06) | DRG 536 ==
LOC: MEDSURG 13:48
PROVIDERS: ADMIT Internal Medicine; ATTEND Internal Medicine
DX: S72.001A Fracture of unspecified part of neck of right femur, initial encounter for closed fracture (principal); W08.XXXA Fall from other furniture, initial encounter; I10 Essential (primary) hypertension; E78.5 Hyperlipidemia, unspecified; E78.00 Pure hypercholesterolemia, unspecified; M19.90 Unspecified osteoarthritis, unspecified site; R32 Unspecified urinary incontinence; Z96.641 Presence of right artificial hip joint; Z96.653 Presence of artificial knee joint, bilateral
CPT/HCPCS: 71045; 80048; 81001; 84132; 97110; 97530; 97535; 99306; 99316; J1650